=== PATIENT | male | born 1980 | race Caucasian/White ===

== ENCOUNTER 2018-04-08 08:10 | Emergency (ER) | payer OTHER ==
[2018-04-08] MEDS ORDERED: VALACYCLOVIR HCL1 GM PO (08:21)
[2018-04-08 08:28] VITALS: BP 126/77
== END 2018-04-08 08:31 | disposition home or self-care (01) | DRG 596 ==
LOC: ED 08:10
DX: B02.9 Zoster without complications (principal)